=== PATIENT | female | born 1955 | race Hispanic/Latino ===

== ENCOUNTER 2024-01-05 01:22 | Emergency (ER) | payer SELFPAY ==
[2024-01-05] VITALS (75 sets, daily range): BP systolic 83–144; BP diastolic 46–68; PULSE 84–116; RESP 9–33; TEMP 36.9–37.1; O2SAT 10–100; BMI 27.4
--- NOTE | 2024-01-05 01:42 | DI.CT.S_ITS ---
PROCEDURE: CT ABDOMEN PELVIS W CON INDICATIONS: LLQ and flank pain hx pyelo also history colitis TECHNIQUE: After the administration of intravenous contrast, axial sections acquired from the lung bases to the pubic symphysis. Coronal and sagittal reformats were performed. For radiation dose reduction, the following was used: automated exposure control, adjustment of mA and/or kV according to patient size. COMPARISON: None. FINDINGS: Lower thorax: The lung bases are clear. Heart size normal. No hiatal hernia. Liver: Normal in size and attenuation. No contour deformity present. Hypodense 1.2 cm lesion left hepatic lobe Biliary system: No calcified cholelithiasis or pericholecystic inflammation. No intra or extrahepatic bile duct dilatation. Pancreas: Unremarkable without mass or inflammation evident. Spleen: Normal in size and density. Adrenals: Normal morphology and density. Reproductive system: Unremarkable as visualized. Urinary system: Left renal moderate hydronephrosis and hydroureter without calcified obstructing lesion. 3 mm nonobstructing left renal calculus. No right renal calculi hydronephrosis. Gastrointestinal system: Moderate fecal debris in the rectum. Descending and sigmoid colon shows wall thickening is nonspecific may related to underdistention. Appendix: Normal appendix identified. No evidence of appendicitis. Peritoneal spaces: No mesenteric or retroperitoneal adenopathy. No free air. No free fluid. Vasculature: The IVC, aorta and iliac vasculature are unremarkable. Small vessel atherosclerotic vascular calcification noted associated with the uterus pelvic vasculature Abdominal wall: Abdominal wall intact without evidence of ventral or inguinal hernias. Musculoskeletal: Normal bone mineralization. Degenerative disc disease and arthropathy noted in lower lumbar spine. No acute fractures. IMPRESSION: 1. Left-sided hydronephrosis, hydroureter and perinephric edema without calcified obstructing lesion. Differential possibilities include recently passed stone, pyelonephritis, and less likely noncalcified stone. 2. Nonspecific left-sided colonic wall thickening probably related to underdistention. Less likely differential would be defects or inflammatory colitis Note: This final report is concordant with the preliminary after-hours interpretation provided by [facility] Approved by: Turner Hernandez M.D. on 01/05/2024 at 9:16
--- NOTE | 2024-01-05 01:42 | DI.RAD.S_ITS ---
PROCEDURE: XR CHEST 1V INDICATIONS: LLQ and flank pain hx pyelo also history colitis TECHNIQUE: One view of the chest was acquired. COMPARISON: None. FINDINGS: Surgical changes and devices: None. Lungs and pleura: Lungs are clear. No pleural effusions or pneumothorax. Mediastinum: Mediastinal contours appear normal. Heart size is normal. Bones and chest wall: No suspicious bony lesions. Overlying soft tissues appear unremarkable. IMPRESSION: No acute cardiopulmonary abnormality is seen. Note: This final report is concordant with the preliminary after-hours interpretation provided by [facility] Approved by: Turner Hernandez M.D. on 01/05/2024 at 9:00
--- NOTE | 2024-01-05 01:44 | ED.ABDPAIN ---
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 Method 01/05/24 06:50 01/05/24 06:55 01/05/24 06:55 Temperature Pulse Rate 87 87 Respiratory Rate 10 L 21 Blood Pressure 116/62 Pulse Oximetry 100 100 Oxygen Delivery Method 01/05/24 07:00 01/05/24 07:00 01/05/24 07:05 Temperature Pulse Rate 88 93 H Respiratory Rate 22 26 H Blood Pressure 121/61 Pulse Oximetry 99 99 Oxygen Delivery Method 01/05/24 07:05 01/05/24 07:10 01/05/24 07:10 Temperature Pulse Rate 88 Respiratory Rate 9 L Blood Pressure 103/56 L 100/50 L Pulse Oximetry 99 Oxygen Delivery Method 01/05/24 07:15 01/05/24 07:15 01/05/24 07:20 Temperature Pulse Rate 89 90 Respiratory Rate 10 L 22 Blood Pressure 101/51 L Pulse Oximetry 99 99 Oxygen Delivery Method 01/05/24 07:20 01/05/24 07:23 01/05/24 07:25 Temperature 98.8 F Pulse Rate 89 90 Respiratory Rate 18 23 Blood Pressure 118/59 L 118/59 L Pulse Oximetry 100 Oxygen Delivery Method 01/05/24 07:25 01/05/24 07:30 01/05/24 07:30 Temperature Pulse Rate 90 Respiratory Rate 22 Blood Pressure 121/59 L 102/54 L Pulse Oximetry 99 Oxygen Delivery Method 01/05/24 07:35 01/05/24 07:35 01/05/24 07:40 Temperature Pulse Rate 90 Respiratory Rate 20 Blood Pressure 106/52 L 112/52 L Pulse Oximetry 98 Oxygen Delivery Method 01/05/24 07:40 01/05/24 07:45 01/05/24 07:45 Temperature Pulse Rate 91 H 91 H Respiratory Rate 21 21 Blood Pressure 108/53 L Pulse Oximetry 98 98 Oxygen Delivery Method 01/05/24 07:50 01/05/24 07:50 01/05/24 07:55 Temperature Pulse Rate 94 H Respiratory Rate 13 Blood Pressure 109/53 L 99/55 L Pulse Oximetry 99 Oxygen Delivery Method 01/05/24 07:55 01/05/24 08:00 01/05/24 08:00 Temperature Pulse Rate 92 H 94 H Respiratory Rate 22 25 H Blood Pressure 104/58 L Pulse Oximetry 96 Oxygen Delivery Method 01/05/24 08:05 01/05/24 08:05 01/05/24 08:10 Temperature Pulse Rate 95 H 94 H Respiratory Rate 23 21 Blood Pressure 105/53 L Pulse Oximetry 100 97 Oxygen Delivery Method 01/05/24 08:10 01/05/24 08:15 01/05/24 08:15 Temperature Pulse Rate 96 H Respiratory Rate 25 H Blood Pressure 110/54 L 114/57 L Pulse Oximetry 98 Oxygen Delivery Method 01/05/24 08:20 01/05/24 08:20 01/05/24 08:25 Temperature Pulse Rate 98 H Respiratory Rate 25 H Blood Pressure 117/57 L 121/58 L Pulse Oximetry 97 Oxygen Delivery Method 01/05/24 08:25 01/05/24 08:30 01/05/24 08:30 Temperature Pulse Rate 97 H 101 H Respiratory Rate 25 H 27 H Blood Pressure 126/59 L Pulse Oximetry 96 96 Oxygen Delivery Method 01/05/24 08:35 01/05/24 08:35 01/05/24 08:40 Temperature Pulse Rate 98 H 98 H Respiratory Rate 25 H Blood Pressure 123/58 L Pulse Oximetry 96 96 Oxygen Delivery Method 01/05/24 08:40 01/05/24 08:45 01/05/24 08:45 Temperature Pulse Rate 99 H Respiratory Rate Blood Pressure 129/60 123/60 Pulse Oximetry 97 Oxygen Delivery Method 01/05/24 08:50 01/05/24 08:50 01/05/24 08:55 Temperature Pulse Rate 100 H 101 H Respiratory Rate 25 H 27 H Blood Pressure 124/61 Pulse Oximetry 96 96 Oxygen Delivery Method 01/05/24 08:55 01/05/24 09:00 01/05/24 09:00 Temperature Pulse Rate 101 H Respiratory Rate 26 H Blood Pressure 135/60 134/61 Pulse Oximetry 96 Oxygen Delivery Method 01/05/24 09:05 01/05/24 09:05 01/05/24 09:10 Temperature Pulse Rate 102 H Respiratory Rate 27 H Blood Pressure 130/62 137/65 Pulse Oximetry 97 Oxygen Delivery Method 01/05/24 09:10 01/05/24 09:15 01/05/24 09:15 Temperature Pulse Rate 104 H 103 H Respiratory Rate 30 H 31 H Blood Pressure 133/62 Pulse Oximetry 96 96 Oxygen Delivery Method 01/05/24 09:20 01/05/24 09:20 01/05/24 09:25 Temperature Pulse Rate 105 H 105 H Respiratory Rate 31 H 29 H Blood Pressure 137/65 Pulse Oximetry 97 97 Oxygen Delivery Method 01/05/24 09:25 Temperature Pulse Rate Respiratory Rate Blood Pressure 128/62 Pulse Oximetry Oxygen Delivery Method MDM - Abdominal Pain <Karuna Rose, DO - Last Filed: 01/13/24 07:14> Lab Data 01/05/24 04:45 01/05/24 04:45 Labs: Lab Results 01/05/24 01/05/24 01/05/24 Range/Units 02:00 02:06 03:20 WBC 18.0 H (4.5-11.0) X10^3/uL RBC 3.67 L (4.0-5.2) X10^6/uL Hgb 9.8 L (12.0-16.0) g/dL Hct 28.9 L (36-46) % MCV 78.9 L (80-100) fL MCH 26.6 (26-34) PG MCHC 33.8 (30-36) % RDW 14.2 (11.6-14.8) % Plt Count 129 L (150-400) X10^3/uL Neut % (Auto) 96.0 H (50-75) % Lymph % (Auto) 1.1 L (25-40) % [place] % (Auto) 2.1 L (3-14) % Eos % (Auto) 0.6 L (2-4) % Baso % (Auto) 0.2 (0-2) % Neut # (Auto) 69262 H (1390-9643) /uL Lymph # (Auto) 200 L (9930-2899) /uL [place] # (Auto) 400 (0-900) /uL Eos # (Auto) 100 (0-450) /uL Baso # (Auto) 0 (0-100) /uL Total Counted Seg Neutrophils % (38-70) % Band Neutrophils % (3-7) % Lymphocytes % (Manual) (25-45) % Monocytes % (Manual) (2-11) % Metamyelocytes % (-0) % Neutrophils # (Manual) (4253-0966) /uL RBC Morphology PT 14.4 H (9.4-12.5) SECONDS INR 1.3 (0.9-1.3) APTT 35 (25.1-36.5) SECONDS Sodium 134 L (137-145) mmol/L Potassium 4.0 (3.4-5.1) mmol/L Chloride 106 (98-107) mmol/L Carbon Dioxide 17 L (22-32) mmol/L BUN 45 H (7-17) mg/dL Creatinine 2.36 H (0.52-1.04) mg/dL Estimated GFR 22 L (>60) mL/min BUN/Creatinine Ratio 19.1 (6-22) Glucose 154 H (80-110) mg/dL Lactate 5.7 H* (0.7-2.1) mmol/L Calcium 8.3 L (8.4-10.2) mg/dL Total Bilirubin 0.5 (0.2-1.3) mg/dL AST 24 (14-36) IU/L ALT 17 (<35) IU/L Alkaline Phosphatase 124 (38-126) U/L Total Creatine Kinase 64 (30-135) U/L Troponin I 0.015 (0.01-0.034) ng/mL Total Protein 6.6 (6.3-8.2) g/dL Albumin 3.1 L (3.5-5.0) g/dL Globulin 3.5 (1.7-4.1) g/dL Albumin/Globulin Ratio 0.9 L (1.0-2.8) Procalcitonin 85.3 H (<0.5) ng/mL Urine Color Yellow Urine Appearance Cloudy Urine pH 5.5 (4.5-8.0) Ur Specific [place] 1.015 (1.000-1.035) Urine Protein 1+ H (Negative) Urine Glucose (UA) Negative (Negative) g/dL Urine Ketones Negative (NEGATIVE) Urine Occult Blood 3+ H (Negative) Urine Nitrate Negative (Negative) Urine Bilirubin Negative (NEGATIVE) Urine Urobilinogen 0.2 (0.2) E.U./dL Ur Leukocyte Esterase 2+ H (NEGATIVE) Urine RBC 5-10/hpf H (0-5/HPF) Urine WBC >100/hpf H (0-5/HPF) Ur Squamous Epith Cells 1-5 /hpf (0-5/HPF) Urine Bacteria Many (>30) H (None) Ur Culture Indicated? Specimen cultured Vol Urine Centrifuged 10ml (spun) A.calcoaceticus-baumannii cmplx PCR Not detected (Not Detect) Bacteroides fragilis Not detected (Not Detect) Jocelyne albicans (PCR) Not detected (Not Detect) Jocelyne auris (PCR) Not detected (Not Detect) C. glabrata (PCR) Not detected (Not Detect) C. krusei (PCR) Not detected (Not Detect) C. parapsilosis (PCR) Not detected (Not Detect) C. tropicalis (PCR) Not detected (Not Detect) C. neoform/gattii (PCR) Not detected (Not Detect) Enterobacterales (PCR) Detected (Not Detect) E. cloacae complex PCR Not detected (Not Detect) Enterococc faecalis PCR Not detected (Not Detect) Enterococc faecium PCR Not detected (Not Detect) E. coli (PCR) Detected (Not Detect) H. influenzae (PCR) Not detected (Not Detect) Klebsiella aerogenes (PCR) Not detected (Not Detect) Klebsiella oxytoca PCR Not detected (Not Detect) Klebsiella pneumoniae Not detected (Not Detect) List. monocytogenes PCR Not detected (Not Detect) N. meningitidis (PCR) Not detected (Not Detect) Proteus species (PCR) Not detected (Not Detect) Salmonella spp. (PCR) Not detected (Not Detect) Serratia marcescens PCR Not detected (Not Detect) Staphylococcus sp PCR Not detected (Not Detect) Staph aureus (PCR) Not detected (Not Detect) mecA/C & MREJ Resist Gene Not applicable (Not Detect) mecA/C-Methicil Resis Gene Not applicable (Not Detect) mcr-1 Colistin Res Gene PCR Not detected (Not Detect) Staph epidermidis (PCR) Not detected (Not Detect) Staph lugdunensis PCR Not detected (Not Detect) S. maltophilia (PCR) Not detected (Not Detect) Streptococcus sp PCR Not detected (Not Detect) Group A Strep (PCR) Not detected (Not Detect) Strep agalactiae (PCR) Not detected (Not Detect) Strep pneumoniae (PCR) Not detected (Not Detect) P. aeruginosa (PCR) Not detected (Not Detect) Spike/B-Vanco Res Genes Not applicable (Not Detect) blaIMP Car res Gene PCR Not detected (Not Detect) KPC-Carbap Res Gene PCR Not detected (Not Detect) blaNDM Car Res Gene PCR Not detected (Not Detect) OXA-48 Carbapenem Resis Gene (PCR) Not detected (Not Detect) blaVIM Car Res Gene PCR Not detected (Not Detect) CTX-M Gene Resistance (PCR) Detected (Not Detect) Blood Type B Positive Antibody Screen Negative Crossmatch See Detail 01/05/24 01/05/24 01/05/24 Range/Units 04:45 07:25 09:25 WBC 24.5 H (4.5-11.0) X10^3/uL RBC 3.29 L (4.0-5.2) X10^6/uL Hgb 8.8 L (12.0-16.0) g/dL Hct 25.9 L (36-46) % MCV 78.5 L (80-100) fL MCH 26.6 (26-34) PG MCHC 33.9 (30-36) % RDW 14.0 (11.6-14.8) % Plt Count 112 L (150-400) X10^3/uL Neut % (Auto) Not Reportable (50-75) % Lymph % (Auto) Not Reportable (25-40) % [place] % (Auto) Not Reportable (3-14) % Eos % (Auto) Not Reportable (2-4) % Baso % (Auto) Not Reportable (0-2) % Neut # (Auto) (8848-7794) /uL Lymph # (Auto) Not Reportable (1701-2056) /uL [place] # (Auto) Not Reportable (0-900) /uL Eos # (Auto) (0-450) /uL Baso # (Auto) Not Reportable (0-100) /uL Total Counted 100 Seg Neutrophils % 72.0 H (38-70) % Band Neutrophils % 21.0 H (3-7) % Lymphocytes % (Manual) 1.0 L (25-45) % Monocytes % (Manual) 2.0 (2-11) % Metamyelocytes % 4.0 H (-0) % Neutrophils # (Manual) 43307 H (1670-8651) /uL RBC Morphology Normal morphology PT (9.4-12.5) SECONDS INR (0.9-1.3) APTT (25.1-36.5) SECONDS Sodium 133 L (137-145) mmol/L Potassium 3.9 (3.4-5.1) mmol/L Chloride 107 (98-107) mmol/L Carbon Dioxide 16 L (22-32) mmol/L BUN 44 H (7-17) mg/dL Creatinine 2.35 H (0.52-1.04) mg/dL Estimated GFR 22 L (>60) mL/min BUN/Creatinine Ratio 18.7 (6-22) Glucose 147 H (80-110) mg/dL Lactate 5.1 H* 4.9 H* 5.7 H* (0.7-2.1) mmol/L Calcium 7.7 L (8.4-10.2) mg/dL Total Bilirubin (0.2-1.3) mg/dL AST (14-36) IU/L ALT (<35) IU/L Alkaline Phosphatase (38-126) U/L Total Creatine Kinase (30-135) U/L Troponin I (0.01-0.034) ng/mL Total Protein (6.3-8.2) g/dL Albumin (3.5-5.0) g/dL Globulin (1.7-4.1) g/dL Albumin/Globulin Ratio (1.0-2.8) Procalcitonin (<0.5) ng/mL Urine Color Urine Appearance Urine pH (4.5-8.0) Ur Specific [place] (1.000-1.035) Urine Protein (Negative) Urine Glucose (UA) (Negative) g/dL Urine Ketones (NEGATIVE) Urine Occult Blood (Negative) Urine Nitrate (Negative) Urine Bilirubin (NEGATIVE) Urine Urobilinogen (0.2) E.U./dL Ur Leukocyte Esterase (NEGATIVE) Urine RBC (0-5/HPF) Urine WBC (0-5/HPF) Ur Squamous Epith Cells (0-5/HPF) Urine Bacteria (None) Ur Culture Indicated? Vol Urine Centrifuged A.calcoaceticus-baumannii cmplx PCR (Not Detect) Bacteroides fragilis (Not Detect) Jocelyne albicans (PCR) (Not Detect) Jocelyne auris (PCR) (Not Detect) C. glabrata (PCR) (Not Detect) C. krusei (PCR) (Not Detect) C. parapsilosis (PCR) (Not Detect) C. tropicalis (PCR) (Not Detect) C. neoform/gattii (PCR) (Not Detect) Enterobacterales (PCR) (Not Detect) E. cloacae complex PCR (Not Detect) Enterococc faecalis PCR (Not Detect) Enterococc faecium PCR (Not Detect) E. coli (PCR) (Not Detect) H. influenzae (PCR) (Not Detect) Klebsiella aerogenes (PCR) (Not Detect) Klebsiella oxytoca PCR (Not Detect) Klebsiella pneumoniae (Not Detect) List. monocytogenes PCR (Not Detect) N. meningitidis (PCR) (Not Detect) Proteus species (PCR) (Not Detect) Salmonella spp. (PCR) (Not Detect) Serratia marcescens PCR (Not Detect) Staphylococcus sp PCR (Not Detect) Staph aureus (PCR) (Not Detect) mecA/C & MREJ Resist Gene (Not Detect) mecA/C-Methicil Resis Gene (Not Detect) mcr-1 Colistin Res Gene PCR (Not Detect) Staph epidermidis (PCR) (Not Detect) Staph lugdunensis PCR (Not Detect) S. maltophilia (PCR) (Not Detect) Streptococcus sp PCR (Not Detect) Group A Strep (PCR) (Not Detect) Strep agalactiae (PCR) (Not Detect) Strep pneumoniae (PCR) (Not Detect) P. aeruginosa (PCR) (Not Detect) Spike/B-Vanco Res Genes (Not Detect) blaIMP Car res Gene PCR (Not Detect) KPC-Carbap Res Gene PCR (Not Detect) blaNDM Car Res Gene PCR (Not Detect) OXA-48 Carbapenem Resis Gene (PCR) (Not Detect) blaVIM Car Res Gene PCR (Not Detect) CTX-M Gene Resistance (PCR) (Not Detect) Blood Type Antibody Screen Crossmatch Imaging Data CT scan - abdomen/pelvis: Radiologist's Impression: Mild left hydroureteronephrosis without UTI stone infection favored a recently passed stone, pyelonephritis consider bilaterally left greater than right consider with urinalysis. Wall thickening versus underdistention distal colon, colitis infectious inflammatory etiology is possible. Severe calcified atherosclerotic disease with small caliber vessels in the pelvis. Chest x-ray: Radiologist's Impression: normal heart and lungs, right IJ CVC tip atriocaval junction. MDM Narrative Medical decision making narrative: 68-year-old female known diabetic on insulin who presents with complaint of 1 day of left lower quadrant and left flank pain. Patient was febrile in the field 100.2 after Tylenol reportedly, had an elevated lactate in the field with EMS, she received LR, Rocephin and for a brief. Norepinephrine with EMS in the field as part of a sepsis pilot manager project in collaboration with [facility]. Patient is tachycardic, hypotensive, she appears pale. Labs labs show white count of 18, hemoglobin of 9.8, hematocrit of 28, platelets of 129 leftward shift with 96% neutrophils. INR is 1.3. Sodium is 134 potassium is 4, BUN 45 with a creatinine 2.36 with a CO2 of 17, glucose 154 with a lactate of 5.7. Normal LFTs negative troponin. procalcitonin is 85. EKG Chest x-ray shows no acute change. Abdomen CT to evaluate for diverticulitis versus pyelonephritis versus kidney stone versus other. CT shows mild left hydro without UTI infection consider recently passed stone. Wall thickening versus underdistention is still colon. Urine 5-10 RBCs greater than 100, many bacteria 1-5 squamous, 3+ blood, no nitrates. Pyelonephritis acute kidney injury, dehydration, sepsis, reviewed with patient and family she continues to be hypotensive. With heart rate in the 90s, white count, elevated lactate, patient's sepsis with septic shock. After 2+ L still hypotensive, patient started on norepinephrine. Central line was placed after verbal and written consent with using the still operator helper and daughter at bedside. Continue with maintenance fluids. Patient's hemoglobin is low at 9.8 she states she has been told she is anemic she does not know normal. They do not recall any times they have been told that she had any kidney issues other than infection, last creatinine was in 2018 at 0.9 Patient lives in [place] it does not have any care locally. Danielle catheter placed for strict I and Os. Repeat CBC, lactate and BNP were sent. I do expect some dilution with her fluids. But patient does have good dysfunction felt appropriate for a 1 unit of PRBC. Patient initially had a little bit of improvement with epi. But still 90 systolic. Anemia is slightly worse somewhat delusional but we will still give 1 unit PRBCs, continue with fluid. Norepinephrine gtt. White count went from 18-24, hemoglobin went from 9.8-8.8, platelets are 129-112. BNP was also repeated sodium is 133 potassium 3 9 chloride 107 CO2 60s with a BUN of 44 creatinine is 2.35 almost identical despite at least a L and a half of fluids here in the department. Lactate was 5.7-5.1, glucose 154 12/05/2046. Spoke with patient and family she feels more comfortable. Tolerated central line well, chest xray show tip with good placement, no pneumothorax. Discussed feel she would be more appropriate a larger facility that has not house workforce management analyst and Nephrology if needed as well as potential Urology although no obvious obstructive change. Calls out to multiple facilities Spoke with Dr. Taylor, workforce management analyst at [facility]. Patient accepted for transfer to ICU. They will call back with bed assignment. Signed out to Dr. Connors while awaiting bed at outside facility. <Bao Artis MD - Last Filed: 01/05/24 10:00> Lab Data Labs: Lab Results 01/05/24 01/05/24 01/05/24 Range/Units 02:00 02:06 03:20 WBC 18.0 H (4.5-11.0) X10^3/uL RBC 3.67 L (4.0-5.2) X10^6/uL Hgb 9.8 L (12.0-16.0) g/dL Hct 28.9 L (36-46) % MCV 78.9 L (80-100) fL MCH 26.6 (26-34) PG MCHC 33.8 (30-36) % RDW 14.2 (11.6-14.8) % Plt Count 129 L (150-400) X10^3/uL Neut % (Auto) 96.0 H (50-75) % Lymph % (Auto) 1.1 L (25-40) % [place] % (Auto) 2.1 L (3-14) % Eos % (Auto) 0.6 L (2-4) % Baso % (Auto) 0.2 (0-2) % Neut # (Auto) 72526 H (7541-4181) /uL Lymph # (Auto) 200 L (9229-8314) /uL [place] # (Auto) 400 (0-900) /uL Eos # (Auto) 100 (0-450) /uL Baso # (Auto) 0 (0-100) /uL Total Counted Seg Neutrophils % (38-70) % Band Neutrophils % (3-7) % Lymphocytes % (Manual) (25-45) % Monocytes % (Manual) (2-11) % Metamyelocytes % (-0) % Neutrophils # (Manual) (8931-0187) /uL RBC Morphology PT 14.4 H (9.4-12.5) SECONDS INR 1.3 (0.9-1.3) APTT 35 (25.1-36.5) SECONDS Sodium 134 L (137-145) mmol/L Potassium 4.0 (3.4-5.1) mmol/L Chloride 106 (98-107) mmol/L Carbon Dioxide 17 L (22-32) mmol/L BUN 45 H (7-17) mg/dL Creatinine 2.36 H (0.52-1.04) mg/dL Estimated GFR 22 L (>60) mL/min BUN/Creatinine Ratio 19.1 (6-22) Glucose 154 H (80-110) mg/dL Lactate 5.7 H* (0.7-2.1) mmol/L Calcium 8.3 L (8.4-10.2) mg/dL Total Bilirubin 0.5 (0.2-1.3) mg/dL AST 24 (14-36) IU/L ALT 17 (<35) IU/L Alkaline Phosphatase 124 (38-126) U/L Total Creatine Kinase 64 (30-135) U/L Troponin I 0.015 (0.01-0.034) ng/mL Total Protein 6.6 (6.3-8.2) g/dL Albumin 3.1 L (3.5-5.0) g/dL Globulin 3.5 (1.7-4.1) g/dL Albumin/Globulin Ratio 0.9 L (1.0-2.8) Procalcitonin 85.3 H (<0.5) ng/mL Urine Color Yellow Urine Appearance Cloudy Urine pH 5.5 (4.5-8.0) Ur Specific [place] 1.015 (1.000-1.035) Urine Protein 1+ H (Negative) Urine Glucose (UA) Negative (Negative) g/dL Urine Ketones Negative (NEGATIVE) Urine Occult Blood 3+ H (Negative) Urine Nitrate Negative (Negative) Urine Bilirubin Negative (NEGATIVE) Urine Urobilinogen 0.2 (0.2) E.U./dL Ur Leukocyte Esterase 2+ H (NEGATIVE) Urine RBC 5-10/hpf H (0-5/HPF) Urine WBC >100/hpf H (0-5/HPF) Ur Squamous Epith Cells 1-5 /hpf (0-5/HPF) Urine Bacteria Many (>30) H (None) Ur Culture Indicated? Specimen cultured Vol Urine Centrifuged 10ml (spun) A.calcoaceticus-baumannii cmplx PCR Not detected (Not Detect) Bacteroides fragilis Not detected (Not Detect) Jocelyne albicans (PCR) Not detected (Not Detect) Jocelyne auris (PCR) Not detected (Not Detect) C. glabrata (PCR) Not detected (Not Detect) C. krusei (PCR) Not detected (Not Detect) C. parapsilosis (PCR) Not detected (Not Detect) C. tropicalis (PCR) Not detected (Not Detect) C. neoform/gattii (PCR) Not detected (Not Detect) Enterobacterales (PCR) Detected (Not Detect) E. cloacae complex PCR Not detected (Not Detect) Enterococc faecalis PCR Not detected (Not Detect) Enterococc faecium PCR Not detected (Not Detect) E. coli (PCR) Detected (Not Detect) H. influenzae (PCR) Not detected (Not Detect) Klebsiella aerogenes (PCR) Not detected (Not Detect) Klebsiella oxytoca PCR Not detected (Not Detect) Klebsiella pneumoniae Not detected (Not Detect) List. monocytogenes PCR Not detected (Not Detect) N. meningitidis (PCR) Not detected (Not Detect) Proteus species (PCR) Not detected (Not Detect) Salmonella spp. (PCR) Not detected (Not Detect) Serratia marcescens PCR Not detected (Not Detect) Staphylococcus sp PCR Not detected (Not Detect) Staph aureus (PCR) Not detected (Not Detect) mecA/C & MREJ Resist Gene Not applicable (Not Detect) mecA/C-Methicil Resis Gene Not applicable (Not Detect) mcr-1 Colistin Res Gene PCR Not detected (Not Detect) Staph epidermidis (PCR) Not detected (Not Detect) Staph lugdunensis PCR Not detected (Not Detect) S. maltophilia (PCR) Not detected (Not Detect) Streptococcus sp PCR Not detected (Not Detect) Group A Strep (PCR) Not detected (Not Detect) Strep agalactiae (PCR) Not detected (Not Detect) Strep pneumoniae (PCR) Not detected (Not Detect) P. aeruginosa (PCR) Not detected (Not Detect) Spike/B-Vanco Res Genes Not applicable (Not Detect) blaIMP Car res Gene PCR Not detected (Not Detect) KPC-Carbap Res Gene PCR Not detected (Not Detect) blaNDM Car Res Gene PCR Not detected (Not Detect) OXA-48 Carbapenem Resis Gene (PCR) Not detected (Not Detect) blaVIM Car Res Gene PCR Not detected (Not Detect) CTX-M Gene Resistance (PCR) Detected (Not Detect) Blood Type B Positive Antibody Screen Negative Crossmatch See Detail 01/05/24 01/05/24 01/05/24 Range/Units 04:45 07:25 09:25 WBC 24.5 H (4.5-11.0) X10^3/uL RBC 3.29 L (4.0-5.2) X10^6/uL Hgb 8.8 L (12.0-16.0) g/dL Hct 25.9 L (36-46) % MCV 78.5 L (80-100) fL MCH 26.6 (26-34) PG MCHC 33.9 (30-36) % RDW 14.0 (11.6-14.8) % Plt Count 112 L (150-400) X10^3/uL Neut % (Auto) Not Reportable (50-75) % Lymph % (Auto) Not Reportable (25-40) % [place] % (Auto) Not Reportable (3-14) % Eos % (Auto) Not Reportable (2-4) % Baso % (Auto) Not Reportable (0-2) % Neut # (Auto) (2972-7027) /uL Lymph # (Auto) Not Reportable (3756-0285) /uL [place] # (Auto) Not Reportable (0-900) /uL Eos # (Auto) (0-450) /uL Baso # (Auto) Not Reportable (0-100) /uL Total Counted 100 Seg Neutrophils % 72.0 H (38-70) % Band Neutrophils % 21.0 H (3-7) % Lymphocytes % (Manual) 1.0 L (25-45) % Monocytes % (Manual) 2.0 (2-11) % Metamyelocytes % 4.0 H (-0) % Neutrophils # (Manual) 44251 H (3701-1147) /uL RBC Morphology Normal morphology PT (9.4-12.5) SECONDS INR (0.9-1.3) APTT (25.1-36.5) SECONDS Sodium 133 L (137-145) mmol/L Potassium 3.9 (3.4-5.1) mmol/L Chloride 107 (98-107) mmol/L Carbon Dioxide 16 L (22-32) mmol/L BUN 44 H (7-17) mg/dL Creatinine 2.35 H (0.52-1.04) mg/dL Estimated GFR 22 L (>60) mL/min BUN/Creatinine Ratio 18.7 (6-22) Glucose 147 H (80-110) mg/dL Lactate 5.1 H* 4.9 H* 5.7 H* (0.7-2.1) mmol/L Calcium 7.7 L (8.4-10.2) mg/dL Total Bilirubin (0.2-1.3) mg/dL AST (14-36) IU/L ALT (<35) IU/L Alkaline Phosphatase (38-126) U/L Total Creatine Kinase (30-135) U/L Troponin I (0.01-0.034) ng/mL Total Protein (6.3-8.2) g/dL Albumin (3.5-5.0) g/dL Globulin (1.7-4.1) g/dL Albumin/Globulin Ratio (1.0-2.8) Procalcitonin (<0.5) ng/mL Urine Color Urine Appearance Urine pH (4.5-8.0) Ur Specific [place] (1.000-1.035) Urine Protein (Negative) Urine Glucose (UA) (Negative) g/dL Urine Ketones (NEGATIVE) Urine Occult Blood (Negative) Urine Nitrate (Negative) Urine Bilirubin (NEGATIVE) Urine Urobilinogen (0.2) E.U./dL Ur Leukocyte Esterase (NEGATIVE) Urine RBC (0-5/HPF) Urine WBC (0-5/HPF) Ur Squamous Epith Cells (0-5/HPF) Urine Bacteria (None) Ur Culture Indicated? Vol Urine Centrifuged A.calcoaceticus-baumannii cmplx PCR (Not Detect) Bacteroides fragilis (Not Detect) Jocelyne albicans (PCR) (Not Detect) Jocelyne auris (PCR) (Not Detect) C. glabrata (PCR) (Not Detect) C. krusei (PCR) (Not Detect) C. parapsilosis (PCR) (Not Detect) C. tropicalis (PCR) (Not Detect) C. neoform/gattii (PCR) (Not Detect) Enterobacterales (PCR) (Not Detect) E. cloacae complex PCR (Not Detect) Enterococc faecalis PCR (Not Detect) Enterococc faecium PCR (Not Detect) E. coli (PCR) (Not Detect) H. influenzae (PCR) (Not Detect) Klebsiella aerogenes (PCR) (Not Detect) Klebsiella oxytoca PCR (Not Detect) Klebsiella pneumoniae (Not Detect) List. monocytogenes PCR (Not Detect) N. meningitidis (PCR) (Not Detect) Proteus species (PCR) (Not Detect) Salmonella spp. (PCR) (Not Detect) Serratia marcescens PCR (Not Detect) Staphylococcus sp PCR (Not Detect) Staph aureus (PCR) (Not Detect) mecA/C & MREJ Resist Gene (Not Detect) mecA/C-Methicil Resis Gene (Not Detect) mcr-1 Colistin Res Gene PCR (Not Detect) Staph epidermidis (PCR) (Not Detect) Staph lugdunensis PCR (Not Detect) S. maltophilia (PCR) (Not Detect) Streptococcus sp PCR (Not Detect) Group A Strep (PCR) (Not Detect) Strep agalactiae (PCR) (Not Detect) Strep pneumoniae (PCR) (Not Detect) P. aeruginosa (PCR) (Not Detect) Spike/B-Vanco Res Genes (Not Detect) blaIMP Car res Gene PCR (Not Detect) KPC-Carbap Res Gene PCR (Not Detect) blaNDM Car Res Gene PCR (Not Detect) OXA-48 Carbapenem Resis Gene (PCR) (Not Detect) blaVIM Car Res Gene PCR (Not Detect) CTX-M Gene Resistance (PCR) (Not Detect) Blood Type Antibody Screen Crossmatch MDM Narrative Medical decision making narrative: 68-year-old female known diabetic on insulin who presents with complaint of 1 day of left lower quadrant and left flank pain. Patient was febrile in the field 100.2 after Tylenol reportedly, had an elevated lactate in the field with EMS, she received LR, Rocephin and for a brief. Norepinephrine with EMS in the field as part of a sepsis pilot manager project in collaboration with [facility]. Patient is tachycardic, hypotensive, she appears pale. Labs labs show white count of 18, hemoglobin of 9.8, hematocrit of 28, platelets of 129 leftward shift with 96% neutrophils. INR is 1.3. Sodium is 134 potassium is 4, BUN 45 with a creatinine 2.36 with a CO2 of 17, glucose 154 with a lactate of 5.7. Normal LFTs negative troponin. procalcitonin is 85. EKG Chest x-ray shows no acute change. Abdomen CT to evaluate for diverticulitis versus pyelonephritis versus kidney stone versus other. CT shows mild left hydro without UTI infection consider recently passed stone. Wall thickening versus underdistention is still colon. Urine 5-10 RBCs greater than 100, many bacteria 1-5 squamous, 3+ blood, no nitrates. Pyelonephritis acute kidney injury, dehydration, sepsis, reviewed with patient and family she continues to be hypotensive. With heart rate in the 90s, white count, elevated lactate, patient's sepsis with septic shock. After 2+ L still hypotensive, patient started on norepinephrine. Central line was placed after verbal and written consent with using the still operator helper and daughter at bedside. Continue with maintenance fluids. Patient's hemoglobin is low at 9.8 she states she has been told she is anemic she does not know normal. They do not recall any times they have been told that she had any kidney issues other than infection, last creatinine was in 2018 at 0.9 Patient lives in [place] it does not have any care locally. Danielle catheter placed for strict I and Os. Repeat CBC, lactate and BNP were sent. I do expect some dilution with her fluids. But patient does have good dysfunction felt appropriate for a 1 unit of PRBC. Patient initially had a little bit of improvement with epi. But still 90 systolic. Anemia is slightly worse somewhat delusional but we will still give 1 unit PRBCs, continue with fluid. Norepinephrine gtt. White count went from 18-24, hemoglobin went from 9.8-8.8, platelets are 129-112. BNP was also repeated sodium is 133 potassium 3 9 chloride 107 CO2 60s with a BUN of 44 creatinine is 2.35 almost identical despite at least a L and a half of fluids here in the department. Lactate was 5.7-5.1, glucose 154 12/05/2046. Spoke with patient and family she feels more comfortable. Tolerated central line well, chest xray show tip with good placement, no pneumothorax. Discussed feel she would be more appropriate a larger facility that has not house workforce management analyst and Nephrology if needed as well as potential Urology although no obvious obstructive change. Calls out to multiple facilities Spoke with Dr. Taylor, workforce management analyst at [facility]. Patient accepted for transfer to ICU. They will call back with bed assignment. Signed out to Dr. Artis while awaiting bed at outside facility. -- Sign out at 7:00AM. This is a 68yo F w/h/o DM on insulin with recurring pyelonephritis. She is from [place]. She received CTX prior to arrival. She was febrile, tachycardic, hypotensive, septic. She receievd 3L crystalloid, NE gtt. She has leukocytosis to 18, worsening. Lactate >5 with mild improvement. Cr >2. Last labs roughly 6yrs ago, prior Cr then WNL. Hgb 9. She got Levaquin. CT with possible colitis vs underdistension, no nephrolithiasis. CXR clear. Trop negative. She received 1u pRBC empirically. She has Danielle, making urine. She is accepted to [facility] for txf in case she ultimately needs dialysis. Central line in place. Awaiting bed. PLAN: monitor pending transfer. On my review of records, worsening leukocytosis to 24.5. Anemia worsening to 8.8. Thrombocytpenia present to 112. INR and PTT WNL, arguing against DIC. Chemistry with hyponatremia, renal injury, lactate improving mildly from 5.7 to 5.1. Procalcitonin very elevated to 85.3, consistent with sepsis. UA with infection, with culture sent; as per sign out, pt received ceftriaxone prior to arrival and blood cultures. Note one bcx obtained prior to extension of antibiotics here; additional one being obtained. Patient remains on NE gtt, appearing perfused and comfortable. I spoke with daughter and patient in room, updating them and answering questions. No new concerns. Lactate improved slightly to 4.9. [facility] has accepted patient. Transport being arranged. Transport here. Patient being transported ALS in stable condition clinically. Consented for transport. Note lactate immediately prior to transfer increased. However, clinically, patient appears well-perfused, tolerating norepinephrine drip. I feel it is extremely important to get her to higher level of care and do not feel further delays in transfer are in her best interest currently. Currently, I feel benefits of transfer outweigh risks, and patient and family agree. In this setting, transporting. Critical Care Time <Karuna Rose, DO - Last Filed: 01/13/24 07:14> Critical Care Time Critical Care Time: Yes Total Critical Care Time: 45 Attestation: The high probability of a clinically significant, sudden or life threatening deterioration of the [cardiac, pulm] system(s) required my full and direct attention, intervention and personal management. The aggregate critical care time was [] minutes. This time is in addition to time spent performing reported procedures but includes the following: [x] Data Review and interpretation [x] Patient assessment and monitoring of vital signs [x] Documentation [x] Medication orders and management Discharge Plan Departure Patient Disposition: [facility] Clinical Impression: Pyelonephritis, Acute kidney injury Sepsis Qualifiers: Sepsis type: sepsis due to unspecified organism Sepsis acute organ dysfunction status: with acute organ dysfunction Severe sepsis acute organ dysfunction type: acute renal failure Severe sepsis shock status: without septic shock
[2024-01-05] MEDS: ACETAMINOPHEN IV 1,000 MG/100 ML VIAL 400 MG IV (02:14)
--- NOTE | 2024-01-05 02:17 | PC.NURSE ---
per Dr Rose's order, LR from medics continued for bag 600 to infuse
[2024-01-05 02:59] LABS: Add Manual Diff / Slide Review NO; Basophils Absolute Auto 0 /uL (0-100); Basophils Percent Auto 0.2 % (0-2); Eosinophils Absolute Auto 100 /uL (0-450); Eosinophils Percent Auto 0.6 % (2-4); Hematocrit 28.9 % (36-46); Hemoglobin 9.8 g/dL (12.0-16.0); Lymphocytes Absolute Auto 200 /uL (1100-4500); Lymphocytes Percent Auto 1.1 % (25-40); Mean Corpuscular HGB Conc 33.8 % (30-36); Mean Corpuscular Hemoglobin 26.6 PG (26-34); Mean Corpuscular Volume 78.9 fL (80-100); Monocytes Absolute Auto 400 /uL (0-900); Monocytes Percent Auto 2.1 % (3-14); Neutrophils Absolute Auto 17200 /uL (1500-7000); Platelet Count 129 X10^3/uL (150-400); Red Blood Cell Count 3.67 X10^6/uL (4.0-5.2); Red Cell Distribution Width 14.2 % (11.6-14.8)
[2024-01-05 03:07] LABS: INR 1.3 (0.9-1.3); Prothrombin Time 14.4 SECONDS (9.4-12.5)
[2024-01-05 03:09] LABS: PTT Partial Thromboplastin Tim 35 SECONDS (25.1-36.5)
[2024-01-05 03:11] LABS: Albumin 3.1 g/dL (3.5-5.0); Albumin Globulin Ratio 0.9 (1.0-2.8); Alkaline Phosphatase 124 U/L (38-126); Aspartate Aminotransferase 24 IU/L (14-36); BUN Creatinine Ratio 19.1 (6-22); Bilirubin Total 0.5 mg/dL (0.2-1.3); Blood Urea Nitrogen 45 mg/dL (7-17); Calcium 8.3 mg/dL (8.4-10.2); Carbon Dioxide 17 mmol/L (22-32); Chloride 106 mmol/L (98-107); Creatine Kinase 64 U/L (30-135); Estimated Glomerular Filt Rate 22 mL/min (>60); Globulin 3.5 g/dL (1.7-4.1); Glucose 154 mg/dL (80-110); Sodium 134 mmol/L (137-145); Total Protein 6.6 g/dL (6.3-8.2)
[2024-01-05 03:16] LABS: Alanine Aminotransferase 17 IU/L (<35); HEMOLYSIS < 15 (0-50)
[2024-01-05 03:23] LABS: Troponin I 0.015 ng/mL (0.01-0.034)
--- NOTE | 2024-01-05 03:25 | PC.NURSE ---
straight cath done pt tolerated well 100 ml hakeem colored urine returned
[2024-01-05 03:26] LABS: Lactate (Lactic Acid) 5.7 mmol/L (0.7-2.1)
[2024-01-05 03:28] LABS: Procalcitonin 85.3 ng/mL (<0.5)
[2024-01-05 03:32] LABS: Appearance Urine UA CLOUDY; Bilirubin Urine UA NEGATIVE (NEGATIVE); Color Urine UA YELLOW; Glucose Urine UA NEGATIVE (Negative); Ketones Urine UA NEGATIVE (NEGATIVE); Leukocyte Esterase Urine UA 2+ (NEGATIVE); Nitrite Urine UA NEGATIVE (Negative); Occult Blood Urine UA 3+ (Negative); Protein Urine UA 1+ (Negative); Specific Gravity Urine UA 1.015 (1.000-1.035); Urobilinogen Urine UA 0.2 E.U./dL (0.2)
[2024-01-05 03:35] LABS: pH Urine UA 5.5 (4.5-8.0)
[2024-01-05] MEDS: SODIUM CHLORIDE 0.9% 1,000 ML 1000 ML IV (03:36)
[2024-01-05 03:41] LABS: Bacteria Urine Many (>30); Culture Indicated Urine Specimen Cultured; RBC Urine 5-10/HPF (0-5/HPF); Squamous Epithelial Cell Urine 1-5 /HPF (0-5/HPF); Urine Volume 10mL (spun); WBC Urine >100/HPF (0-5/HPF)
[2024-01-05] MEDS: levoFLOXacin 750 MG/150 ML PIGGYBACK 100 MG IV (03:50)
[2024-01-05] MEDS: fentaNYL 100 MCG/2 ML INJ 25 MCG IV (04:09)
--- NOTE | 2024-01-05 04:21 | DI.RAD.S_ITS ---
PROCEDURE: XR CHEST 1V INDICATIONS: post central line TECHNIQUE: One view of the chest was acquired. COMPARISON: [facility], , XR CHEST 1V, 01/05/2024, 1:44. FINDINGS: Surgical changes and devices: Right-sided IJ central venous line tip at the cavoatrial junction Lungs and pleura: Lungs are clear. No pleural effusions or pneumothorax. Mediastinum: Mediastinal contours appear normal. Heart size is normal. Bones and chest wall: No suspicious bony lesions. Overlying soft tissues appear unremarkable. IMPRESSION: Right IJ central venous line in good position. No pneumothorax. Note: This final report is concordant with the preliminary after-hours interpretation provided by [facility], [facility] Approved by: Turner Hernandez M.D. on 01/05/2024 at 9:25
[2024-01-05 04:27] LABS: Reflexed Lactate in 2 Hours Y
[2024-01-05] MEDS: NOREPINEPHRINE BITARTRATE/D5W 4 MG/250 ML PLAST..BAG 28.253 MG IV (04:38)
[2024-01-05 05:00] LABS: Add Manual Diff / Slide Review YES; Hematocrit 25.9 % (36-46); Hemoglobin 8.8 g/dL (12.0-16.0); Mean Corpuscular HGB Conc 33.9 % (30-36); Mean Corpuscular Hemoglobin 26.6 PG (26-34); Mean Corpuscular Volume 78.5 fL (80-100); Platelet Count 112 X10^3/uL (150-400); Red Blood Cell Count 3.29 X10^6/uL (4.0-5.2); White Blood Cell Count 24.5 X10^3/uL (4.5-11.0)
[2024-01-05 05:04] LABS: BUN Creatinine Ratio 18.7 (6-22); Blood Urea Nitrogen 44 mg/dL (7-17); Calcium 7.7 mg/dL (8.4-10.2); Carbon Dioxide 16 mmol/L (22-32); Chloride 107 mmol/L (98-107); Estimated Glomerular Filt Rate 22 mL/min (>60); Glucose 147 mg/dL (80-110); HEMOLYSIS < 15 (0-50); Potassium 3.9 mmol/L (3.4-5.1); Sodium 133 mmol/L (137-145)
[2024-01-05 05:08] LABS: Lactate 2HR (Lactic Acid Rflx) 5.1 mmol/L (0.7-2.1)
[2024-01-05] MEDS: SODIUM CHLORIDE 0.9% 1,000 ML 100 ML IV (05:15)
--- NOTE | 2024-01-05 05:22 | PC.NURSE ---
0505-I started searching for an ICU bed for this patient, [facility] took this patient's information and will call back once they have more information on bed availability. is @ capacity at this time.
[2024-01-05 05:23] LABS: Neutrophils Absolute Manual 22785 /uL (3000-5900); Total Cells Counted 100
[2024-01-05 05:25] LABS: RBC Morphology Normal Morphology
[2024-01-05 07:49] LABS: Lactate (Lactic Acid) 4.9 mmol/L (0.7-2.1)
[2024-01-05 09:09] LABS: Reflexed Lactate in 2 Hours Y
[2024-01-05 09:42] LABS: Lactate 2HR (Lactic Acid Rflx) 5.7 mmol/L (0.7-2.1)
--- NOTE | 2024-01-05 09:51 | PC.NURSE ---
This RN gave verbal report to April RN at [facility]. This RN gave verbal report to RN for [facility].
--- NOTE | 2024-01-05 09:52 | PC.NURSE ---
This RN gave pulled additional bag of norepinepherine for this patient as it was slated to run out prior to the patient getting to [place].
[2024-01-05 17:53] LABS: Acinetobacter calcoa-baumannii Not Detected (Not Detect); Bacteroides fragilis Not Detected (Not Detect); CTX-M Resistance Detected (Not Detect); Candida albicans Not Detected (Not Detect); Candida auris Not Detected (Not Detect); Candida glabrata Not Detected (Not Detect); Candida krusei Not Detected (Not Detect); Candida parapsilosis Not Detected (Not Detect); Candida tropicalis Not Detected (Not Detect); Cryptococcus neoformans/gatti Not Detected (Not Detect); Enterobacter cloacae complex Not Detected (Not Detect); Enterobacterales Detected (Not Detect); Enterococcus faecalis Not Detected (Not Detect); Enterococcus faecium Not Detected (Not Detect); Haemophilus influenzae Not Detected (Not Detect); IMP Resistance Not Detected (Not Detect); KPC Resistance Not Detected (Not Detect); Klebsiella aerogenes Not Detected (Not Detect); Listeria monocytogenes Not Detected (Not Detect); NDM Resistance Not Detected (Not Detect); Neisseria meningitidis Not Detected (Not Detect); OXA-48-like Resistance Not Detected (Not Detect); Proteus species Not Detected (Not Detect); Pseudomonas aeruginosa Not Detected (Not Detect); Salmonella species Not Detected (Not Detect); Serratia marcescens Not Detected (Not Detect); Staphylococcus epidermidis Not Detected (Not Detect); Staphylococcus lugdunensis Not Detected (Not Detect); Staphylococcus species Not Detected (Not Detect); Stenotrophomonas maltophilia Not Detected (Not Detect); Streptococcus agalactiae (Gr B Not Detected (Not Detect); Streptococcus pneumonia Not Detected (Not Detect); Streptococcus pyogenes (Gr A) Not Detected (Not Detect); Streptococcus species Not Detected (Not Detect); VIM Resistance Not Detected (Not Detect); mcr-1 Resistance Not Detected (Not Detect)
== END 2024-01-05 09:50 | disposition short-term general hospital (02) ==
PROVIDERS: Emergency Medicine; Emergency Provider Emergency Medicine
DX: N17.9 Acute kidney failure, unspecified (principal); N12 Tubulo-interstitial nephritis, not specified as acute or chronic; A41.9 Sepsis, unspecified organism; R50.9 Fever, unspecified; R51.9 Headache, unspecified; R00.0 Tachycardia, unspecified; I95.9 Hypotension, unspecified
CPT/HCPCS: 36430; 71045; 74177; 80048; 80053; 81001; 82550; 83605; 84145; 84484; 85007; 85025; 85610; 85730; 86850; 86900; 86901; 87040; 87077; 87086; 87154; 87186; 96365; 96366; 96367; 96368; 96375; 99284; 99291; P9016; J0136; J1956; J3010; Q9967